=== PATIENT | female | born 1940 | race Caucasian/White ===

== ENCOUNTER 2019-05-23 13:35 | Inpatient (IN) | payer MEDICARE, OTHER ==
[2019-05-23] MEDS ORDERED: ASPIRIN 81 MG TABLET, CHEWABLE PO ONE (13:54)
--- NOTE | 2019-05-23 13:57 | ER Document Report ---
ED Medical Screen (RME) - General Chief Complaint: Chest Pain Stated Complaint: NAUSEA,CHEST PAIN Time Seen by Provider: 05/23/19 13:46 Mode of Arrival: Wheelchair Information source: Patient Notes: 78-year-old female with history of COPD presents emergency department with complaints of nausea abdominal discomfort shortness of breath for the past week. She reports today she started having chest pressure pressure. She took 1 nitro it did not help she took a second nitro that helped her chest pain. She reports she is felt really tired unable to get a good breath. She reports that she t hought maybe she was constipated she took a stool softener yesterday and had a good bowel movement. Denies pain with void. Reports nausea not eating much. Reports she had a cardiac cath in 2011 and 2 stents were placed. Denies history of [place]. She may have had the nitro since 2011. I have greeted and performed a rapid initial assessment of this patient. A comprehensive ED assessment and evaluation of the patient, analysis of test results and completion of the medical decision making process will be conducted by additional ED providers. Physical Exam - Vital signs Vitals: Temp Pulse Resp BP Pulse Ox 98.4 F 110 H 18 136/64 H 95 05/23/19 13:48 05/23/19 13:48 05/23/19 13:48 05/23/19 13:48 05/23/19 13:48 Course - Vital Signs Vital signs: Temp Pulse Resp BP Pulse Ox 98.4 F 110 H 18 136/64 H 95 05/23/19 13:48 05/23/19 13:48 05/23/19 13:48 05/23/19 13:48 05/23/19 13:48
[2019-05-23 14:39] LABS: ALBUMIN 4.1 g/dL (3.5-5.0); ALKALINE PHOSPHATASE 73 U/L (38-126); ANION GAP 15 (5-19); ASPARTATE AMINO TRANSFERASE 30 U/L (14-36); BILIRUBIN,DIRECT 0.2 mg/dL (0.0-0.4); BLOOD UREA NITROGEN 25 mg/dL (7-20); CALCIUM 9.3 mg/dL (8.4-10.2); CARBON DIOXIDE 25 mmol/L (22-30); CHLORIDE 93 mmol/L (98-107); GLUCOSE 137 mg/dL (75-110); POTASSIUM 4.1 mmol/L (3.6-5.0); TOTAL PROTEIN 7.2 g/dL (6.3-8.2)
[2019-05-23 15:14] LABS: APPEARANCE,URINE CLOUDY; BILIRUBIN,URINE NEGATIVE (NEGATIVE); COLOR,URINE YELLOW; GLUCOSE, URINE NEGATIVE (NEGATIVE); KETONES,URINE TRACE mg/dL (NEGATIVE); LEUKOCYTE ESTERASE,URINE MODERATE (NEGATIVE); NITRITE,URINE NEGATIVE (NEGATIVE); PROTEIN,URINE NEGATIVE (NEGATIVE); URINE SPECIFIC GRAVITY 1.013; UROBILINOGEN,URINE NEGATIVE mg/dL (<2.0)
--- NOTE | 2019-05-23 15:33 | RADIOLOGY REPORT (SQ) ---
EXAM DESCRIPTION: CHEST 2 VIEWS COMPLETED DATE/TIME: 05/23/2019 3:14 pm REASON FOR STUDY: cp COMPARISON: None. EXAM PARAMETERS: NUMBER OF VIEWS: two views TECHNIQUE: PA and lateral views of the chest were obtained. RADIATION DOSE: NA LIMITATIONS: none FINDINGS: LUNGS AND PLEURA: The costophrenic sulci are blunted. There is no consolidation or pneumo thorax. MEDIASTINUM AND HILAR STRUCTURES: No mediastinal or hilar contour abnormality. HEART AND VASCULAR STRUCTURES: The cardiac silhouette is enlarged. BONES: No acute findings. HARDWARE: Coronary artery stents and surgical clips that project within the left axilla. OTHER: No other finding. IMPRESSION: Mild cardiomegaly and small bilateral pleural effusions. TECHNICAL DOCUMENTATION: JOB ID: [id number] [employer]- All Rights Reserved Reading location - IP/workstation name: [email or web address]
[2019-05-23] MEDS ORDERED: NORMAL SALINE 500 ML IV ONE ×2 (15:54→18:55)
[2019-05-23] MEDS ORDERED: PANTOPRAZOLE SODIUM 40 MG VIAL IV ONE (16:36)
[2019-05-23] MEDS ORDERED: ONDANSETRON HCL INJ/PF 4 MG/2 ML SDV IV ONE (16:40)
[2019-05-23 17:29] LABS: ABSOLUTE MONOCYTES (AUTO) 1.1 10^3/uL (0.1-1.4); ABSOLUTE NEUT (AUTO) 8.8 10^3/uL (1.7-8.2); BASOPHILS % (AUTO) 0.3 % (0-2); HEMATOCRIT 38.1 % (36.0-47.0); HEMOGLOBIN 12.9 g/dL (12.0-15.5); LYMPHOCYTES % (AUTO) 9.3 % (13-45); MEAN CORPUSCULAR HEMOGLOBIN 32.2 pg (27.0-33.4); MEAN CORPUSCULAR HGB CONC 33.8 g/dL (32.0-36.0); MEAN CORPUSCULAR VOLUME 95 fl (80-97); MONOCYTES % (AUTO) 10.3 % (3-13); PLATELET COUNT 156 10^3/uL (150-450); RED CELL DISTRIBUTION WIDTH 14.1 % (11.5-14.0); SEGMENTED NEUTROPHILS % (AUTO) 80.1 % (42-78); TOTAL CELLS COUNTED % (AUTO) 100 %
--- NOTE | 2019-05-23 18:37 | RADIOLOGY REPORT (SQ) ---
EXAM DESCRIPTION: U/S ABDOMEN LIMITED W/O DOP COMPLETED DATE/TIME: 05/23/2019 6:17 pm REASON FOR STUDY: nausea, epigastric discomfort COMPARISON: None. TECHNIQUE: Dynamic and static grayscale images acquired of the abdomen and recorded on PACS. Additio nal selected color Doppler and spectral images recorded. LIMITATIONS: Limited visualization. Poor acoustical window FINDINGS: PANCREAS: Not visualized. LIVER: Normal size Moderate to marked fatty infiltration. No focal masses. LIVER VASCULATURE: Normal directional flow of the main portal vein and hepatic veins. GALLBLADDER: Sludge. No stones. Normal wall thickness. No pericholecystic fluid. ULTRASOUND-DETECTED DOSS'S SIGN: Negative. INTRAHEPATIC DUCTS AND COMMON DUCT: CBD and intrahepatic ducts normal caliber. No filling defects. INFERIOR VENA CAVA: Normal flow. AORTA: No aneurysm. RIGHT KIDNEY: Normal size. Normal echogenicity. No solid or suspicious masses. No hydronephros is. No calcifications. PERITONEAL AND RIGHT PLEURAL SPACE: No ascites or effusions. OTHER: No other significant findings. IMPRESSION: Fatty liver. Gallbladder sludge. No acute findings. TECHNICAL DOCUMENTATION: JOB ID: [id number]- All Rights Reserved Reading location - IP/workstation name: [email or web address]
[2019-05-23 18:53] LABS: A TYPE INFLUENZA AG NEGATIVE (NEGATIVE); B INFLUENZA AG NEGATIVE (NEGATIVE)
[2019-05-23] MEDS ORDERED: METOPROLOL TARTRATE 25 MG TABLET PO ONE (20:02)
[2019-05-23] MEDS ORDERED: FUROSEMIDE INJ/PF 40 MG/4 ML SDV IV ONE ×2 (20:09→20:30)
--- NOTE | 2019-05-23 20:09 | ER Document Report ---
ED General - General Chief Complaint: Chest Pain Stated Complaint: NAUSEA,CHEST PAIN Time Seen by Provider: 05/23/19 13:46 Mode of Arrival: Wheelchair Notes: Patient is a 78-year-old female who came in with chest pain, dyspnea, nausea. Initial heart rate 140s. Patient has a history of A. fib but apparently has not been in it recently. Patient states that she did not take metoprolol this morning. She did use her albuterol inhaler because she felt that she was wheezing. Has had decreased p.o. intake due to nausea over the last 4 days and has had a cough and congestion for about a week or 2. States that she starts to eat and developed some upper abdominal discomfort and bloating sensation. Patient states that she has felt like the" plug got pulled on the drain" over the last week. Apparently her 80-year-old had to semi-carry her because she was having a difficult time due to weakness today. Of note, the patient did take nitroglycerin when she had chest pain and was having an increased difficult time standing up and walking after this. Denies chest pain currently. No fever. Possibly had a fever a few days ago. Patient is down visiting family and usually lives in [place] where all of her doctors are. She does not have a primary locally. - Related Data Allergies/Adverse Reactions: No Known Allergies Allergy (Verified 05/23/19 13:56) Past Medical History - General Information source: Patient - Social History Smoking Status: Former Smoker Cigarette use (# per day): No Chew tobacco use (# tins/day): No Lives with: Family Family History: Reviewed & Not Pertinent Patient has suicidal ideation: No Patient has homicidal ideation: No Review of Systems - Review of Systems -: Yes All other systems reviewed and negative Physical Exam - Vital signs Vitals: Temp Pulse Resp BP Pulse Ox 98.4 F 110 H 18 136/64 H 95 05/23/19 13:48 05/23/19 13:48 05/23/19 13:48 05/23/19 13:48 05/23/19 13:48 Interpretation: Normal - General General appearance: Alert In distress: Mild - HEENT Head: Normocephalic, Atraumatic Eyes: Normal Pupils: PERRL - Respiratory Respiratory status: No respiratory distress Chest status: Nontender Breath sounds: Rales - At bases, left greater than right, Wheezing - Upper apices Chest palpation: Normal - Cardiovascular Rhythm: Irregularly irregular Heart sounds: Normal auscultation Murmur: No - Abdominal Inspection: Normal Distension: No distension Bowel sounds: Normal Tenderness: Tender - Epigastric Organomegaly: No organomegaly - Back Back: Normal, Nontender - Extremities General upper extremity: Normal inspection, Nontender, Normal color, Normal ROM, Normal temperature General lower extremity: Normal inspection, Nontender, Normal color, Normal ROM, Normal temperature, Normal weight bearing. No: Isabel's sign - Neurological Neuro grossly intact: Yes Cognition: Normal Orientation: AAOx4 [place] Coma Scale Eye Opening: Spontaneous [place] Coma Scale Verbal: Oriented [place] Coma Scale Motor: Obeys Commands Mel Coma Scale Total: 15 Speech: Normal Motor strength normal: LUE, RUE, LLE, RLE Sensory: Normal - Psychological Associated symptoms: Normal affect, Normal mood - Skin Skin Temperature: Warm Skin Moisture: Dry Skin Color: Pale Course - Re-evaluation Re-evalutation: 05/23/19 22:02 Patient is a 78-year-old female who came in with various complaints including chest pain, dyspnea, nausea, and upper abdominal discomfort intermittently over the last week. Ultrasound with no acute findings. Troponin negative x2. EKG with atrial fibrillation. No further chest pain in the emergency department which seems to correlate with the patient's heart rate being around 100. She did not take her metoprolol and did use her albuterol inhaler which could put her into rapid A. fib, as could hypoxia. Patient has no history of heart failure. She has had nausea and dyspepsia which has resolved here with Zofran and Protonix. Patient is eating and drinking now without a problem. On reexamination however, becomes dyspneic just with sitting up and has rales at bases. Pulmonary fusion bilaterally although minimal. It is quite possible that the patient has developed heart failure or that atrial fibrillation could have thrown her into heart failure. Regardless, given her age and dyspnea, will require admission for further evaluation of her symptoms as she has no local follow-up. Patient and family are agreeable to this plan. Stable at the time of admission. Of note, Lopressor has been given in the emergency department. Patient discussed with Dr. Wiggins and will be admitted to the [facility]. - Vital Signs Vital signs: Temp Pulse Resp BP Pulse Ox 98.2 F 110 H 18 106/52 L 95 05/23/19 14:28 05/23/19 13:48 05/23/19 21:01 05/23/19 21:01 05/23/19 21:01 - Laboratory Result Diagrams: 05/23/19 13:53 05/23/19 14:14 Laboratory results interpreted by me: 05/23/19 05/23/19 05/23/19 13:53 14:14 14:52 WBC 11.0 H RDW 14.1 H Lymph % (Auto) 9.3 L Absolute Neuts (auto) 8.8 H Seg Neutrophils % 80.1 H Sodium 133.3 L Chloride 93 L BUN 25 H Creatinine 1.27 H Est GFR ( Amer) 49 L Est GFR (MDRD) Non-Af 41 L Glucose 137 H NT-Pro-B Natriuret Pep Lipase 422.7 H Urine Ketones TRACE H Ur Leukocyte Esterase MODERATE H Urine Ascorbic Acid 20 H 05/23/19 16:50 WBC RDW Lymph % (Auto) Absolute Neuts (auto) Seg Neutrophils % Sodium Chloride BUN Creatinine Est GFR ( Amer) Est GFR (MDRD) Non-Af Glucose NT-Pro-B Natriuret Pep 3500 H Lipase Urine Ketones Ur Leukocyte Esterase Urine Ascorbic Acid - Diagnostic Test Radiology reviewed: Reports reviewed - EKG Interpretation by Me Rate: Tachycardia Rhythm: A.Fib Critical Care Note - Critical Care Note Total time excluding time spent on procedures (mins): 35 - Evaluation and management of chest pain, dyspnea, A. fib, epigastric discomfort, coordination of admission Discharge - Discharge Clinical Impression: Atrial fibrillation with RVR, Pleural effusion, Nausea, Hyponatremia Dyspnea Qualifiers: Dyspnea type: dyspnea on exertion Qualified Code(s): R06.09 - Other forms of dyspnea Condition: Stable Disposition: ADMITTED INPATIENT Admitting Provider: Feliciano (Hospitalist) Unit Admitted: [facility]
[2019-05-23] MEDS: DILTIAZEM HCL 60 MG TABLET PO SCH (20:43)
[2019-05-23] MEDS ORDERED: ACETAMINOPHEN 325 MG TABLET PO PRN (21:04)
[2019-05-23] MEDS ORDERED: MAG HYDROX/AL HYDROX/SIMETH SUSP 30 ML UDCUP PO PRN (21:04)
--- NOTE | 2019-05-23 21:26 | EKG REPORT ---
SEVERITY:- ABNORMAL ECG - ATRIAL FIBRILLATION REPOLARIZATION ABNORMALITY, PROB RATE RELATED : Confirmed by: Linette Tatum MD 23-May-2019 21:26:29
[2019-05-24] MEDS: DILTIAZEM HCL 60 MG TABLET PO SCH ×4 (02:30→17:03)
[2019-05-24] MEDS ORDERED: LEVALBUTEROL HCL NEB 1.25 MG/3 ML AMPUL NEB PRN (03:07)
[2019-05-24] MEDS ORDERED: IPRATROPIUM BROMIDE 0.02% NEB 0.5 MG/2.5 ML AMPUL NEB PRN (03:07)
[2019-05-24] MEDS ORDERED: MONTELUKAST SODIUM 10 MG TABLET PO ONE (04:00)
[2019-05-24 04:20] LABS: ABSOLUTE LYMPHOCYTES (AUTO) 1.1 10^3/uL (0.5-4.7); ABSOLUTE MONOCYTES (AUTO) 1.1 10^3/uL (0.1-1.4); ABSOLUTE NEUT (AUTO) 6.4 10^3/uL (1.7-8.2); BASOPHILS % (AUTO) 0.3 % (0-2); EOSINOPHILS % (AUTO) 0.2 % (0-6); HEMATOCRIT 36.1 % (36.0-47.0); HEMOGLOBIN 12.3 g/dL (12.0-15.5); LYMPHOCYTES % (AUTO) 12.9 % (13-45); MEAN CORPUSCULAR HEMOGLOBIN 32.5 pg (27.0-33.4); MEAN CORPUSCULAR HGB CONC 34.1 g/dL (32.0-36.0); MEAN CORPUSCULAR VOLUME 95 fl (80-97); MONOCYTES % (AUTO) 13.1 % (3-13); PLATELET COUNT 157 10^3/uL (150-450); RED BLOOD COUNT 3.79 10^6/uL (3.72-5.28); RED CELL DISTRIBUTION WIDTH 14.2 % (11.5-14.0); SEGMENTED NEUTROPHILS % (AUTO) 73.5 % (42-78); TOTAL CELLS COUNTED % (AUTO) 100 %; WHITE BLOOD COUNT 8.6 10^3/uL (4.0-10.5)
[2019-05-24 04:49] LABS: ANION GAP 12 (5-19); BLOOD UREA NITROGEN 23 mg/dL (7-20); CALCIUM 8.3 mg/dL (8.4-10.2); CARBON DIOXIDE 25 mmol/L (22-30); CHLORIDE 99 mmol/L (98-107); GLUCOSE 115 mg/dL (75-110); POTASSIUM 3.5 mmol/L (3.6-5.0)
--- NOTE | 2019-05-24 06:30 | PDOC H&P ---
History of Present Illness Admission Date/PCP: 05/23/19 21:07 Patient complains of: Shortness of breath History of Present Illness: SUKHDEV KEMP is a 78 year old female with a past medical history of breast cancer status post left-sided mastectomy remotely, COPD, chronic allergic sinusitis and paroxysmal atrial fibrillation without regular anticoagulation. She presents with 7 days of viral prodrome, subjective fever fatigue, nausea, loose stools and a nonproductive cough with shortness of breath. Shortness of breath prompted her to take more albuterol nebulizer than usual and in the emergency department she is found to have atrial fibrillation in the 140s and 150s, and leukocytosis with a lymphocytic shift. She receives Lopressor, patient otherwise admits to noncompliance of regular medications for unclear duration. She denies chest pain and is referred to the hospitalist for admission. Past Medical History Cardiac Medical History: Reports: Atrial Fibrillation, Hypertension Denies: Congestive Heart Failure, Coronary Artery Disease Pulmonary Medical History: Reports: Bronchitis, Chronic Obstructive Pulmonary Disease (COPD), Other - Allergic maxillary sinusitis Neurological Medical History: Reports: None Endocrine Medical History: Reports: None Renal/ Medical History: Reports: None Malignancy Medical History: Reports: Breast Cancer GI Medical History: Reports: None Musculoskeltal Medical History: Reports: None Psychiatric Medical History: Reports: None Traumatic Medical History: Reports: None Hematology: Reports: None Infectious Medical History: Reports: None Past Surgical History Past Surgical History: Reports: Mastectomy - Left-sided Social History Information Source: Patient, PENDING SALE TO [facility] Records Lives with: Family Smoking Status: Former Smoker Last Time Smoked: 1996 Frequency of Alcohol Use: None Hx Recreational Drug Use: No Hx Prescription Drug Abuse: No - Advance Directive Resuscitation Status: Full Code Family History Family History: Hypertension Parental Family History Reviewed: Yes Children Family History Reviewed: Yes Sibling(s) Family History Reviewed.: Yes Medication/Allergy Home Medications: Albuterol Sulfate [Albuterol Sulfate Hfa] 1 puff IH Q6HP PRN 05/23/19 Atorvastatin Calcium [Lipitor 40 mg Tablet] 40 mg PO QHS 05/23/19 Calcium Carbonate [Os-Serg 500 mg Tablet (Oyster-Shell)] 500 mg PO DAILY 05/23/19 Cholecalciferol (Vitamin D3) [Vitamin D3 1000 Unit Tablet] 2,000 unit PO DAILY 05/23/19 Fluticasone/Vilanterol [Breo Ellipta 100-25 Mcg INH] 1 inh IH DAILY 05/23/19 Hydrochlorothiazide [Hydrodiuril 25 mg Tablet] 25 mg PO QAM 05/23/19 Losartan Potassium [Cozaar 100 mg Tablet] 100 mg PO DAILY 05/23/19 Metoprolol Tartrate [Lopressor 50 mg Tablet] 50 mg PO DAILY 05/23/19 Metoprolol Tartrate [Lopressor 50 mg Tablet] 75 mg PO QHS 05/23/19 Montelukast Sodium [Singulair 10 mg Tablet] 10 mg PO QHS 05/23/19 Nitroglycerin [Nitrostat 0.4 mg (1/150 Gr) Tabs 25/Bottle] 1 tab SL Q5MP PRN 05/23/19 Millen-3/Dha/Epa/Fish Oil [Fish Oil 1,000 mg Softgel] 1,000 mg PO DAILY 05/23/19 Propylene Glycol [Systane Balance] 1 drop OU QIDP PRN 05/23/19 Rivaroxaban [Xarelto] 20 mg PO DAILY 05/23/19 Vitamin B Complex [B Complex] 1 each PO DAILY 05/23/19 Allergies/Adverse Reactions: No Known Allergies Allergy (Verified 05/23/19 13:56) Review of Systems Constitutional: PRESENT: as per HPI, anorexia, chills, fatigue, fever(s), weakness. ABSENT: weight loss Eyes: ABSENT: visual disturbances Ears: ABSENT: hearing changes Cardiovascular: PRESENT: dyspnea on exertion, palpitations. ABSENT: chest pain, edema Respiratory: PRESENT: as per HPI, cough, dyspnea. ABSENT: sputum Gastrointestinal: PRESENT: as per HPI, bloating, nausea. ABSENT: constipation, hematemesis, hematochezia Genitourinary: ABSENT: dysuria, hematuria Musculoskeletal: ABSENT: joint swelling Integumentary: ABSENT: rash, wounds Neurological: ABSENT: abnormal gait, abnormal speech, confusion, dizziness, focal weakness, syncope Psychiatric: ABSENT: anxiety, depression, homidical ideation, suicidal ideation Endocrine: ABSENT: cold intolerance, heat intolerance, polydipsia, polyuria Hematologic/Lymphatic: ABSENT: easy bleeding, easy bruising Physical Exam Vital Signs: Temp Pulse Resp BP Pulse Ox 100.2 F 90 19 110/45 L 92 05/24/19 00:06 05/24/19 02:00 05/24/19 00:06 05/24/19 00:06 05/24/19 00:06 Intake & Output 05/22/19 05/23/19 05/24/19 11:59 11:59 11:59 Intake Total 1000 Balance 1000 Weight 67 kg General appearance: PRESENT: cooperative, mild distress, well-developed, well- nourished Head exam: PRESENT: atraumatic, normocephalic Eye exam: PRESENT: conjunctiva pink, EOMI, PERRLA. ABSENT: scleral icterus Ear exam: PRESENT: normal external ear exam Mouth exam: PRESENT: moist, tongue midline Neck exam: ABSENT: carotid bruit, JVD, lymphadenopathy, thyromegaly Respiratory exam: PRESENT: clear to auscultation jacob, crackles, retraction, symmetrical, tachypnea, wheezes. ABSENT: rales, rhonchi Cardiovascular exam: PRESENT: irregular rhythm, +S1, +S2, tachycardia Pulses: PRESENT: normal dorsalis pedis pul Vascular exam: PRESENT: normal capillary refill GI/Abdominal exam: PRESENT: normal bowel sounds, soft. ABSENT: distended, guarding, mass, organolmegaly, rebound, tenderness Rectal exam: PRESENT: deferred Extremities exam: PRESENT: full ROM. ABSENT: calf tenderness, clubbing, pedal edema Neurological exam: PRESENT: alert, awake, oriented to person, oriented to place, oriented to time, oriented to situation, CN II-XII grossly intact. ABSENT: motor sensory deficit Psychiatric exam: PRESENT: appropriate affect, normal mood. ABSENT: homicidal ideation, suicidal ideation Skin exam: PRESENT: dry, intact, warm. ABSENT: cyanosis, rash Results Laboratory Results: 05/24/19 03:36 05/24/19 03:36 05/23/19 05/23/19 05/23/19 13:53 14:14 14:14 WBC 11.0 H RBC 4.00 Hgb 12.9 Hct 38.1 MCV 95 MCH 32.2 MCHC 33.8 RDW 14.1 H Plt Count 156 Seg Neutrophils % 80.1 H Sodium 133.3 L Potassium 4.1 Chloride 93 L Carbon Dioxide 25 Anion Gap 15 BUN 25 H Creatinine 1.27 H Est GFR ( Amer) 49 L Glucose 137 H Lactic Acid Calcium 9.3 Magnesium Total Bilirubin 1.0 AST 30 Alkaline Phosphatase 73 Total Protein 7.2 Albumin 4.1 Lipase 422.7 H TSH 2.24 Urine Color Urine Appearance Urine pH Ur Specific Wayne Urine Protein Urine Glucose (UA) Urine Ketones Urine Blood Urine Nitrite Ur Leukocyte Esterase Urine WBC (Auto) Urine RBC (Auto) 05/23/19 05/23/19 05/23/19 14:52 16:50 16:50 WBC RBC Hgb Hct MCV MCH MCHC RDW Plt Count Seg Neutrophils % Sodium Potassium Chloride Carbon Dioxide Anion Gap BUN Creatinine Est GFR ( Amer) Glucose Lactic Acid 1.1 Calcium Magnesium 1.9 Total Bilirubin AST Alkaline Phosphatase Total Protein Albumin Lipase TSH Urine Color YELLOW Urine Appearance CLOUDY Urine pH 5.0 Ur Specific Wayne 1.013 Urine Protein NEGATIVE Urine Glucose (UA) NEGATIVE Urine Ketones TRACE H Urine Blood NEGATIVE Urine Nitrite NEGATIVE Ur Leukocyte Esterase MODERATE H Urine WBC (Auto) 16 Urine RBC (Auto) 7 05/24/19 05/24/19 03:36 03:36 WBC 8.6 RBC 3.79 Hgb 12.3 Hct 36.1 MCV 95 MCH 32.5 MCHC 34.1 RDW 14.2 H Plt Count 157 Seg Neutrophils % 73.5 Sodium 135.8 L Potassium 3.5 L Chloride 99 Carbon Dioxide 25 Anion Gap 12 BUN 23 H Creatinine 1.00 Est GFR ( Amer) > 60 Glucose 115 H Lactic Acid Calcium 8.3 L Magnesium Total Bilirubin AST Alkaline Phosphatase Total Protein Albumin Lipase TSH Urine Color Urine Appearance Urine pH Ur Specific Wayne Urine Protein Urine Glucose (UA) Urine Ketones Urine Blood Urine Nitrite Ur Leukocyte Esterase Urine WBC (Auto) Urine RBC (Auto) 05/23/19 05/23/19 05/23/19 14:14 16:50 16:50 Troponin I < 0.012 < 0.012 NT-Pro-B Natriuret Pep 3500 H 05/23/19 05/24/19 21:30 03:36 Troponin I < 0.012 < 0.012 NT-Pro-B Natriuret Pep Impressions: Chest X-Ray 05/23/19 13:53 IMPRESSION: Mild cardiomegaly and small bilateral pleural effusions. Abdomen Ultrasound 05/23/19 16:36 IMPRESSION: Fatty liver. Gallbladder sludge. No acute findings. Assessment and Plan - Diagnosis (1) Viral respiratory illness Is this a current diagnosis for this admission?: Yes Plan: Flonase, Xopenex, incentive spirometry, follow-up influenza screen (2) Atrial fibrillation with RVR Is this a current diagnosis for this admission?: Yes Plan: Paroxysmal, exacerbated by albuterol nebulizer, Cardizem for rate control transition to beta-monica when respiratory status improves. Patient on Xarelto irregularly, discussed with patient. (3) Dyspnea Qualifiers: Dyspnea type: dyspnea on exertion Qualified Code(s): R06.09 - Other forms of dyspnea Is this a current diagnosis for this admission?: Yes Plan: Multifactorial secondary to high output failure from A. fib with RVR, viral respiratory infection. Supplemental oxygen and flutter valve (4) Congestive heart failure Is this a current diagnosis for this admission?: Yes Plan: Likely high output failure from albuterol triggering paroxysmal atrial fibrillation, rate control trial diuretic, resume Lopressor and education, fluid restriction. Follow-up 2D echo and BNP. - Time Time Spent with patient: 25-34 minutes - Inpatient Certification Medical Necessity: Need Close Monitoring Due to Risk of Patient Decompensation
[2019-05-24] MEDS: IPRATROPIUM BROMIDE 0.02% NEB 0.5 MG/2.5 ML AMPUL NEB SCH ×2 (09:13→20:53)
[2019-05-24] MEDS: LEVALBUTEROL HCL NEB 1.25 MG/3 ML AMPUL NEB SCH ×2 (09:13→20:53)
[2019-05-24] MEDS: ASPIRIN 81 MG TABLET, ENT COATED PO SCH (09:27)
[2019-05-24] MEDS: POTASSIUM CHLORIDE 10 MEQ TABLET.ER PO SCH (09:27)
[2019-05-24] MEDS: DOCUSATE SODIUM 100 MG CAPSULE PO SCH (09:28)
[2019-05-24] MEDS: FLUTICASONE/VILANTEROL 100-25 MCG/DOSE IH SCH (09:39)
[2019-05-24] MEDS ORDERED: FUROSEMIDE 40 MG TABLET PO SCH (10:00)
--- NOTE | 2019-05-24 11:48 | PDOC PROGRESS REPORT ---
Subjective Progress Note for:: 05/24/19 Subjective:: SUKHDEV KEMP is a 78 year old female with a past medical history of breast cancer status post left-sided mastectomy remotely, COPD, chronic allergic sinusitis and paroxysmal atrial fibrillation without regular anticoagulation who was admitted 05/23/2019 with atrial fibrillation with RVR, CHF exacerbation, and viral respiratory illness. Patient was seen on morning rounds with her present. She is found sitting up in bed, comfortably, on room air. She reports that she is feeling much better today. She denies fever, chills, chest pain, palpitations, dyspnea, orthopnea, cough, abdominal pain, nausea vomiting and diarrhea. She has not yet been ambulatory. They have no other questions or concerns at this time. No concerns per nursing. Reason For Visit: AFIB HEART FAILURE Physical Exam Vital Signs: Temp Pulse Resp BP Pulse Ox 99.4 F 71 16 112/41 L 92 05/24/19 07:42 05/24/19 09:13 05/24/19 09:13 05/24/19 07:42 05/24/19 09:13 Intake & Output 05/23/19 05/24/19 05/25/19 06:59 06:59 06:59 Intake Total 1000 Balance 1000 Weight 70.6 kg General appearance: PRESENT: no acute distress, cooperative, well-developed, well-nourished - Overweight Head exam: PRESENT: atraumatic, normocephalic Eye exam: PRESENT: conjunctiva pink, EOMI, PERRLA. ABSENT: scleral icterus Ear exam: PRESENT: normal external ear exam Mouth exam: PRESENT: moist, tongue midline Neck exam: ABSENT: carotid bruit, JVD, lymphadenopathy, thyromegaly Respiratory exam: PRESENT: clear to auscultation jacob, symmetrical, unlabored. ABSENT: rales, rhonchi, wheezes Cardiovascular exam: PRESENT: irregular rhythm, +S1, +S2. ABSENT: diastolic murmur, rubs, systolic murmur Pulses: PRESENT: normal dorsalis pedis pul Vascular exam: PRESENT: normal capillary refill GI/Abdominal exam: PRESENT: normal bowel sounds, soft. ABSENT: distended, guarding, mass, organolmegaly, rebound, tenderness Rectal exam: PRESENT: deferred Extremities exam: PRESENT: full ROM. ABSENT: calf tenderness, clubbing, pedal edema Neurological exam: PRESENT: alert, awake, oriented to person, oriented to place, oriented to time, oriented to situation, CN II-XII grossly intact. ABSENT: motor sensory deficit Psychiatric exam: PRESENT: appropriate affect, normal mood. ABSENT: homicidal ideation, suicidal ideation Skin exam: PRESENT: dry, intact, warm. ABSENT: cyanosis, rash Results Laboratory Results: 05/24/19 03:36 05/24/19 03:36 05/23/19 05/23/19 05/23/19 13:53 14:14 14:14 WBC 11.0 H RBC 4.00 Hgb 12.9 Hct 38.1 MCV 95 MCH 32.2 MCHC 33.8 RDW 14.1 H Plt Count 156 Seg Neutrophils % 80.1 H Sodium 133.3 L Potassium 4.1 Chloride 93 L Carbon Dioxide 25 Anion Gap 15 BUN 25 H Creatinine 1.27 H Est GFR ( Amer) 49 L Glucose 137 H Lactic Acid Calcium 9.3 Magnesium Total Bilirubin 1.0 AST 30 Alkaline Phosphatase 73 Total Protein 7.2 Albumin 4.1 Lipase 422.7 H TSH 2.24 Urine Color Urine Appearance Urine pH Ur Specific [place] Urine Protein Urine Glucose (UA) Urine Ketones Urine Blood Urine Nitrite Ur Leukocyte Esterase Urine WBC (Auto) Urine RBC (Auto) 05/23/19 05/23/19 05/23/19 14:52 16:50 16:50 WBC RBC Hgb Hct MCV MCH MCHC RDW Plt Count Seg Neutrophils % Sodium Potassium Chloride Carbon Dioxide Anion Gap BUN Creatinine Est GFR ( Amer) Glucose Lactic Acid 1.1 Calcium Magnesium 1.9 Total Bilirubin AST Alkaline Phosphatase Total Protein Albumin Lipase TSH Urine Color YELLOW Urine Appearance CLOUDY Urine pH 5.0 Ur Specific [place] 1.013 Urine Protein NEGATIVE Urine Glucose (UA) NEGATIVE Urine Ketones TRACE H Urine Blood NEGATIVE Urine Nitrite NEGATIVE Ur Leukocyte Esterase MODERATE H Urine WBC (Auto) 16 Urine RBC (Auto) 7 05/24/19 05/24/19 03:36 03:36 WBC 8.6 RBC 3.79 Hgb 12.3 Hct 36.1 MCV 95 MCH 32.5 MCHC 34.1 RDW 14.2 H Plt Count 157 Seg Neutrophils % 73.5 Sodium 135.8 L Potassium 3.5 L Chloride 99 Carbon Dioxide 25 Anion Gap 12 BUN 23 H Creatinine 1.00 Est GFR ( Amer) > 60 Glucose 115 H Lactic Acid Calcium 8.3 L Magnesium Total Bilirubin AST Alkaline Phosphatase Total Protein Albumin Lipase TSH Urine Color Urine Appearance Urine pH Ur Specific [place] Urine Protein Urine Glucose (UA) Urine Ketones Urine Blood Urine Nitrite Ur Leukocyte Esterase Urine WBC (Auto) Urine RBC (Auto) 05/23/19 05/23/19 05/23/19 14:14 16:50 16:50 Troponin I < 0.012 < 0.012 NT-Pro-B Natriuret Pep 3500 H 05/23/19 05/24/19 05/24/19 21:30 03:36 09:32 Troponin I < 0.012 < 0.012 < 0.012 NT-Pro-B Natriuret Pep Impressions: Chest X-Ray 05/23/19 13:53 IMPRESSION: Mild cardiomegaly and small bilateral pleural effusions. Abdomen Ultrasound 05/23/19 16:36 IMPRESSION: Fatty liver. Gallbladder sludge. No acute findings. Assessment and Plan - Diagnosis (1) Atrial fibrillation with RVR Is this a current diagnosis for this admission?: Yes Plan: Improved; now rate controlled on p.o. diltiazem. Paroxysmal, exacerbated by albuterol nebulizer Patient is admitted to [facility] on continuous cardiac telemetry. Cardizem for rate control transition to beta-monica when respiratory status improves. Continue daily aspirin. Continue daily Xarelto. (2) Congestive heart failure Qualifiers: Heart failure type: high output Qualified Code(s): I50.83 - High output heart failure Is this a current diagnosis for this admission?: Yes Plan: Likely high output failure from albuterol triggering paroxysmal atrial fibrillation Continue rate control with p.o. diltiazem. Daily aspirin, statin, Xarelto therapy. Cardiac diet. Daily weights. Echocardiogram is pending. (3) Dyspnea Qualifiers: Dyspnea type: dyspnea on exertion Qualified Code(s): R06.09 - Other forms of dyspnea Is this a current diagnosis for this admission?: Yes Plan: Resolved. Multifactorial secondary to high output failure from A. fib with RVR, viral respiratory infection. Supplemental oxygen and flutter valve (4) Viral respiratory illness Is this a current diagnosis for this admission?: Yes Plan: Influenza screening negative. Flonase, Singulair As needed nebulizer treatments Robitussin as needed Incentive spirometry and flutter valve - Time Time Spent with patient: 25-34 minutes Medications reviewed and adjusted accordingly: Yes Anticipated discharge: Home Within: within 24 hours
[2019-05-24] MEDS ORDERED: RIVAROXABAN 10 MG TABLET PO SCH (18:00)
[2019-05-24] MEDS: GUAIFENESIN SYRP 200 MG/10 ML UDC PO PRN (20:05)
[2019-05-24] MEDS: FLUTICASONE NASAL SPRAY 50 MCG/SPRY 120 SPRAY/16 GM NASL SCH (21:05)
[2019-05-24] MEDS ORDERED: MONTELUKAST SODIUM 10 MG TABLET PO SCH (22:00)
[2019-05-24] MEDS ORDERED: ATORVASTATIN CALCIUM 40 MG TABLET PO SCH (22:00)
[2019-05-25] MEDS: DILTIAZEM HCL 60 MG TABLET PO SCH ×3 (00:50→12:07)
[2019-05-25 05:24] LABS: HEMATOCRIT 33.6 % (36.0-47.0); HEMOGLOBIN 11.6 g/dL (12.0-15.5); MEAN CORPUSCULAR HEMOGLOBIN 32.9 pg (27.0-33.4); MEAN CORPUSCULAR HGB CONC 34.6 g/dL (32.0-36.0); MEAN CORPUSCULAR VOLUME 95 fl (80-97); PLATELET COUNT 170 10^3/uL (150-450); RED BLOOD COUNT 3.53 10^6/uL (3.72-5.28); RED CELL DISTRIBUTION WIDTH 13.8 % (11.5-14.0); WHITE BLOOD COUNT 6.5 10^3/uL (4.0-10.5)
[2019-05-25 05:51] LABS: ANION GAP 11 (5-19); BLOOD UREA NITROGEN 21 mg/dL (7-20); CALCIUM 8.5 mg/dL (8.4-10.2); CARBON DIOXIDE 24 mmol/L (22-30); CHLORIDE 100 mmol/L (98-107); GLUCOSE 112 mg/dL (75-110); POTASSIUM 3.8 mmol/L (3.6-5.0)
[2019-05-25] MEDS: GUAIFENESIN SYRP 200 MG/10 ML UDC PO PRN (08:15)
[2019-05-25] MEDS: IPRATROPIUM BROMIDE 0.02% NEB 0.5 MG/2.5 ML AMPUL NEB SCH (08:42)
[2019-05-25] MEDS: LEVALBUTEROL HCL NEB 1.25 MG/3 ML AMPUL NEB SCH (08:42)
[2019-05-25] MEDS: FLUTICASONE/VILANTEROL 100-25 MCG/DOSE IH SCH (09:16)
[2019-05-25] MEDS: FLUTICASONE NASAL SPRAY 50 MCG/SPRY 120 SPRAY/16 GM NASL SCH (09:16)
[2019-05-25] MEDS: DOCUSATE SODIUM 100 MG CAPSULE PO SCH (09:16)
[2019-05-25] MEDS: ASPIRIN 81 MG TABLET, ENT COATED PO SCH (09:16)
[2019-05-25] MEDS: POTASSIUM CHLORIDE 10 MEQ TABLET.ER PO SCH (09:16)
[2019-05-25 10:15] VITALS: BP 124/56
--- NOTE | 2019-05-25 10:40 | PDOC DISCHARGE SUMMARY ---
Impression - Admit/DC Date/PCP Admission Date/Primary Care Provider: 05/23/19 21:07 Discharge Date: 05/25/19 - Discharge Diagnosis (1) Atrial fibrillation with RVR Is this a current diagnosis for this admission?: Yes (2) Congestive heart failure Is this a current diagnosis for this admission?: Yes (3) Dyspnea Is this a current diagnosis for this admission?: Yes (4) Viral respiratory illness Is this a current diagnosis for this admission?: Yes - Additional Information Resuscitation Status: Full Code Discharge Diet: Cardiac Discharge Activity: Activity As Tolerated, Balance Activity w/Rest Referrals: LEYLA MENDOZA MD [ACTIVE STAFF] - 05/26/19 1:30 pm Prescriptions: Diltiazem HCl [Diltiazem 24Hr ER (Cd)] 120 mg PO BID #60 cap.er.24h Aspirin [Ecotrin 81 mg EC Tablet] 81 mg PO DAILY #30 tabec Fluticasone Propionate [Flonase Nasal [place]an[place]illity 50 Mcg/Tranquillity 16 gm] 1 spray NASL Q12 #1 spray.pump Home Medications: Albuterol Sulfate [Albuterol Sulfate Hfa] 1 puff IH Q6HP PRN 05/23/19 Atorvastatin Calcium [Lipitor 40 mg Tablet] 40 mg PO QHS 05/23/19 Calcium Carbonate [Os-Serg 500 mg Tablet (Oyster-Shell)] 500 mg PO DAILY 05/23/19 Cholecalciferol (Vitamin D3) [Vitamin D3 1000 Unit Tablet] 2,000 unit PO DAILY 05/23/19 Fluticasone/Vilanterol [Breo Ellipta 100-25 Mcg INH] 1 inh IH DAILY 05/23/19 Montelukast Sodium [Singulair 10 mg Tablet] 10 mg PO QHS 05/23/19 Rivaroxaban [Xarelto] 20 mg PO DAILY 05/23/19 Acetaminophen [Tylenol 325 mg Tablet] 650 mg PO Q4HP PRN tablet 05/25/19 Aspirin [Ecotrin 81 mg EC Tablet] 81 mg PO DAILY #30 tabec 05/25/19 Diltiazem HCl [Diltiazem 24Hr ER (Cd)] 120 mg PO BID #60 cap.er.24h 05/25/19 Fluticasone Propionate [Flonase Nasal [place]an[place]illity 50 Mcg/Tranquillity 16 gm] 1 spray NASL Q12 #1 spray.pump 05/25/19 Guaifenesin [Robitussin Syrup 200 mg/10 ml Ud Cup] 200 mg PO QIDP PRN udc 05/25/19 History of Present Illiness History of Present Illness: Per H&P by Dr. Wiggins: SUKHDEV KEMP is a 78 year old female with a past medical history of breast cancer status post left-sided mastectomy remotely, COPD, chronic allergic sinusitis and paroxysmal atrial fibrillation without regular anticoagulation. She presents with 7 days of viral prodrome, subjective fever fatigue, nausea, loose stools and a nonproductive cough with shortness of breath. Shortness of breath prompted her to take more albuterol nebulizer than usual and in the emergency department she is found to have atrial fibrillation in the 140s and 150s, and leukocytosis with a lymphocytic shift. She receives Lopressor, patient otherwise admits to noncompliance of regular medications for unclear duration. She denies chest pain and is referred to the hospitalist for admission. Hospital Course Hospital Course: The patient was admitted to [facility] on continuous cardiac telemetry. She remains in atrial fibrillation, though now rate controlled on p.o. diltiazem. She is educated on the importance of continuing her daily aspirin and Xarelto therapy. Discussed the patient's presentation and management with Dr. Mendoza who is provided an appointment for Sunday at 1:30 PM for further evaluation of her CHF. The patient's dyspnea has resolved and she is now maintaining oxygen saturations while on room air. She is discharged home in stable condition. She is advised to follow-up with her primary care provider within [address] Martin as scheduled. She is instructed to make her medications as prescribed. She is encouraged to return to the emergency department as needed for concerning symptoms. Physical Exam Vital Signs: Temp Pulse Resp BP Pulse Ox 99.1 F 82 15 124/56 L 93 05/25/19 10:08 05/25/19 10:08 05/25/19 10:08 05/25/19 10:08 05/25/19 10:08 Intake & Output 05/24/19 05/25/19 05/26/19 06:59 06:59 06:59 Intake Total 1000 1700 Balance 1000 1700 Weight 70.6 kg 72 kg General appearance: PRESENT: no acute distress, cooperative, obese, well- developed, well-nourished Head exam: PRESENT: atraumatic, normocephalic Eye exam: PRESENT: conjunctiva pink, EOMI, PERRLA. ABSENT: scleral icterus Ear exam: PRESENT: normal external ear exam Mouth exam: PRESENT: moist, tongue midline Neck exam: ABSENT: carotid bruit, JVD, lymphadenopathy, thyromegaly Respiratory exam: PRESENT: clear to auscultation jacob, symmetrical, unlabored. ABSENT: rales, rhonchi, wheezes Cardiovascular exam: PRESENT: irregular rhythm, +S1, +S2. ABSENT: diastolic murmur, rubs, systolic murmur Pulses: PRESENT: normal dorsalis pedis pul Vascular exam: PRESENT: normal capillary refill GI/Abdominal exam: PRESENT: normal bowel sounds, soft. ABSENT: distended, guarding, mass, organolmegaly, rebound, tenderness Rectal exam: PRESENT: deferred Extremities exam: PRESENT: full ROM. ABSENT: calf tenderness, clubbing, pedal edema Musculoskeletal exam: PRESENT: ambulatory Neurological exam: PRESENT: alert, awake, oriented to person, oriented to place, oriented to time, oriented to situation, CN II-XII grossly intact. ABSENT: motor sensory deficit Psychiatric exam: PRESENT: appropriate affect, normal mood. ABSENT: homicidal ideation, suicidal ideation Skin exam: PRESENT: dry, intact, warm. ABSENT: cyanosis, rash Results Laboratory Results: WBC 6.5 10^3/uL (4.0-10.5) 05/25/19 04:54 RBC 3.53 10^6/uL (3.72-5.28) L 05/25/19 04:54 Hgb 11.6 g/dL (12.0-15.5) L 05/25/19 04:54 Hct 33.6 % (36.0-47.0) L 05/25/19 04:54 MCV 95 fl (80-97) 05/25/19 04:54 MCH 32.9 pg (27.0-33.4) 05/25/19 04:54 MCHC 34.6 g/dL (32.0-36.0) 05/25/19 04:54 RDW 13.8 % (11.5-14.0) 05/25/19 04:54 Plt Count 170 10^3/uL (150-450) 05/25/19 04:54 Lymph % (Auto) 12.9 % (13-45) L 05/24/19 03:36 Towns % (Auto) 13.1 % (3-13) H 05/24/19 03:36 Eos % (Auto) 0.2 % (0-6) 05/24/19 03:36 Baso % (Auto) 0.3 % (0-2) 05/24/19 03:36 Absolute Neuts (auto) 6.4 10^3/uL (1.7-8.2) 05/24/19 03:36 Absolute Lymphs (auto) 1.1 10^3/uL (0.5-4.7) 05/24/19 03:36 Absolute Monos (auto) 1.1 10^3/uL (0.1-1.4) 05/24/19 03:36 Absolute Eos (auto) 0.0 10^3/uL (0.0-0.6) 05/24/19 03:36 Absolute Basos (auto) 0.0 10^3/uL (0.0-0.2) 05/24/19 03:36 Seg Neutrophils % 73.5 % (42-78) 05/24/19 03:36 Sodium 134.9 mmol/L (137-145) L 05/25/19 04:54 Potassium 3.8 mmol/L (3.6-5.0) 05/25/19 04:54 Chloride 100 mmol/L (98-107) 05/25/19 04:54 Carbon Dioxide 24 mmol/L (22-30) 05/25/19 04:54 Anion Gap 11 (5-19) 05/25/19 04:54 BUN 21 mg/dL (7-20) H 05/25/19 04:54 Creatinine 0.65 mg/dL (0.52-1.25) 05/25/19 04:54 Est GFR ( Amer) > 60 (>60) 05/25/19 04:54 Est GFR (MDRD) Non-Af > 60 (>60) 05/25/19 04:54 Glucose 112 mg/dL (75-110) H 05/25/19 04:54 Lactic Acid 1.1 mmol/L (0.7-2.1) 05/23/19 16:50 Calcium 8.5 mg/dL (8.4-10.2) 05/25/19 04:54 Magnesium 1.9 mg/dL (1.6-2.3) 05/23/19 16:50 Total Bilirubin 1.0 mg/dL (0.2-1.3) 05/23/19 14:14 Direct Bilirubin 0.2 mg/dL (0.0-0.4) 05/23/19 14:14 Neonat Total Bilirubin Not Reportable 05/23/19 14:14 Neonat Direct Bilirubin Not Reportable 05/23/19 14:14 Neonat Indirect Bili Not Reportable 05/23/19 14:14 AST 30 U/L (14-36) 05/23/19 14:14 ALT 18 U/L (<35) 05/23/19 14:14 Alkaline Phosphatase 73 U/L (38-126) 05/23/19 14:14 Troponin I < 0.012 ng/mL 05/24/19 09:32 NT-Pro-B Natriuret Pep 3500 pg/mL (<450) H 05/23/19 16:50 Total Protein 7.2 g/dL (6.3-8.2) 05/23/19 14:14 Albumin 4.1 g/dL (3.5-5.0) 05/23/19 14:14 Lipase 422.7 U/L (23-300) H 05/23/19 14:14 TSH 2.24 uIU/mL (0.47-4.68) 05/23/19 14:14 Urine Color YELLOW 05/23/19 14:52 Urine Appearance CLOUDY 05/23/19 14:52 Urine pH 5.0 (5.0-9.0) 05/23/19 14:52 Ur Specific [place] 1.013 05/23/19 14:52 Urine Protein NEGATIVE mg/dL (NEGATIVE) 05/23/19 14:52 Urine Glucose (UA) NEGATIVE mg/dL (NEGATIVE) 05/23/19 14:52 Urine Ketones TRACE mg/dL (NEGATIVE) H 05/23/19 14:52 Urine Blood NEGATIVE (NEGATIVE) 05/23/19 14:52 Urine Nitrite NEGATIVE (NEGATIVE) 05/23/19 14:52 Urine Bilirubin NEGATIVE (NEGATIVE) 05/23/19 14:52 Urine Urobilinogen NEGATIVE mg/dL (<2.0) 05/23/19 14:52 Ur Leukocyte Esterase MODERATE (NEGATIVE) H 05/23/19 14:52 Urine WBC (Auto) 16 /HPF 05/23/19 14:52 Urine RBC (Auto) 7 /HPF 05/23/19 14:52 U Hyaline Cast (Auto) 1 /LPF 05/23/19 14:52 Urine Bacteria (Auto) TRACE /HPF 05/23/19 14:52 Squamous Epi Cells Auto 6 /HPF 05/23/19 14:52 U Non-Squamous Epis Auto 1 /HPF 05/23/19 14:52 Urine Mucus (Auto) RARE /LPF 05/23/19 14:52 Urine Yeast (Budding) PRESENT /HPF 05/23/19 14:52 Urine Ascorbic Acid 20 (NEGATIVE) H 05/23/19 14:52 Influenza A (Rapid) NEGATIVE (NEGATIVE) 05/23/19 18:06 Influenza B (Rapid) NEGATIVE (NEGATIVE) 05/23/19 18:06 05/23/19 05/23/19 05/23/19 14:14 16:50 16:50 Troponin I < 0.012 < 0.012 NT-Pro-B Natriuret Pep 3500 H 05/23/19 05/24/19 05/24/19 21:30 03:36 09:32 Troponin I < 0.012 < 0.012 < 0.012 NT-Pro-B Natriuret Pep Impressions: Chest X-Ray 05/23/19 13:53 IMPRESSION: Mild cardiomegaly and small bilateral pleural effusions. Abdomen Ultrasound 05/23/19 16:36 IMPRESSION: Fatty liver. Gallbladder sludge. No acute findings. Plan Plan of Treatment: Patient is discharged home in stable condition. She is advised to follow-up with her primary care provider within 1 week. She has been provided a follow-up appointment with Dr. Heck, cardiology, for further evaluation of her heart failure on 05/26/2019, at 1:30 PM. She is instructed to take her medications as prescribed. She is advised to eat a low-sodium diet. Return to the emergency department as needed for concerning symptoms. Time Spent: Greater than 30 Minutes Stroke Is this a Stroke Patient?: No Acute Heart Failure - Is this a Heart Failure Patient?: Yes Documentation of LVEF assessment?: Planned for after discharge LVEF < 40%?: No- if no continue to question #3 3. Anticoagulant therapy for permanect/persistent/paraoxysmal Afib or Aflutter: Yes Follow-up Appointment scheduled within 7 days?: Yes
== END 2019-05-25 12:40 | disposition home or self-care (01) | DRG 309 ==
LOC: ER 13:35 → EH 21:07 → 3S 22:25
PROVIDERS: ADMIT Internal Medicine; ATTEND Internal Medicine
DX: I48.0 Paroxysmal atrial fibrillation (principal); E87.1 Hypo-osmolality and hyponatremia; I50.83 High output heart failure; I11.0 Hypertensive heart disease with heart failure; B34.9 Viral infection, unspecified; J44.9 Chronic obstructive pulmonary disease, unspecified; D72.829 Elevated white blood cell count, unspecified; J30.9 Allergic rhinitis, unspecified; Z90.12 Acquired absence of left breast and nipple; Z87.891 Personal history of nicotine dependence; Z85.3 Personal history of malignant neoplasm of breast; Z79.51 Long term (current) use of inhaled steroids; Z79.899 Other long term (current) drug therapy; Z79.01 Long term (current) use of anticoagulants; Z79.82 Long term (current) use of aspirin; Z91.14 Patient's other noncompliance with medication regimen
CPT/HCPCS: 36415; 71046; 76705; 80048; 80053; 81001; 83605; 83690; 83735; 83880; 84443; 84484; 85025; 85027; 87086; 87804; 93005; 93010; 96361; 96374; 96375; 99291; C9113; J1940; J2405; J3490; J7040